=== PATIENT | male | born 1975 | race Two or more races ===

== ENCOUNTER 2019-09-27 09:52 | Outpatient (CLI) | payer OTHER ==
[~2019-09-27] VITALS: Ht 152.4 cm; Wt 94.8 kg
== END 2019-09-27 12:44 | disposition home or self-care (01) ==
LOC: OFIC 805 09:52
DX: H90.3 Sensorineural hearing loss, bilateral (principal); H61.23 Impacted cerumen, bilateral

== ENCOUNTER → 2021-04-15 | Outpatient (CLI) | payer OTHER | END | disposition home or self-care (01) | LOC: RAD 10:13 | PROVIDERS: ATTEND Internal Medicine Hematology & Oncology | DX: I10 Essential (primary) hypertension (principal) ==